=== PATIENT | male | born 1980 | race Two or more races ===

== ENCOUNTER 2022-06-02 19:14 | Emergency (ER) | payer MEDICAID ==
[~2022-06-02] VITALS: Ht 162.6 cm; Wt 84.1 kg
[2022-06-02] MEDS: HYDROGEN PEROXIDE 118 ML SOLUTION TP ONE (20:46)
[2022-06-02 22:41] VITALS: BP 125/85
[2022-06-02] MEDS: CARBAMIDE PEROXIDE 6.5% 15 ML OTIC SOLUTION AS ONE (23:26)
== END 2022-06-02 23:32 | disposition home or self-care (01) ==
LOC: EMS 19:16
DX: H61.22 Impacted cerumen, left ear (principal); Z98.890 Other specified postprocedural states
CPT/HCPCS: 69209; 99282; Z7502; Z7610